=== PATIENT | female | born 1980 | race Caucasian/White ===

== ENCOUNTER 2021-01-08 15:09 | Emergency (ER) | payer OTHER ==
[~2021-01-08 15:09] MED LIST: BENTYL 10MG CAP10 MG PO; ZOFRAN 4 MG TAB4 MG PO
[2021-01-08 16:29] LABS: HEMOGLOBIN 14.3 gm/dl (12.3-15.3); RED BLOOD COUNT 4.43 M/UL (4.00-5.10); WHITE BLOOD COUNT 9.6 K/UL (4.5-11.0)
[2021-01-08 16:57] LABS: BUN/CREATININE RATIO 16 (0-10)
== END 2021-01-08 18:23 | disposition home or self-care (01) ==
LOC: ER1 15:09
PROVIDERS: Emergency Medicine; Physician Assistant
DX: S40.811A Abrasion of right upper arm, initial encounter (principal); S40.812A Abrasion of left upper arm, initial encounter; I10 Essential (primary) hypertension; Z90.710 Acquired absence of both cervix and uterus; F17.200 Nicotine dependence, unspecified, uncomplicated; Y09 Assault by unspecified means
CPT/HCPCS: 80053; 80307; 85025; 99284

== ENCOUNTER → 2021-12-30 | Outpatient (CLI) | payer OTHER ==
[2021-12-30 11:25] LABS: BUN/CREATININE RATIO 25 (0-10)
== END ==
LOC: LAB 10:00
PROVIDERS: Nurse Practitioner Family
DX: R51.9 Headache, unspecified (principal)
CPT/HCPCS: 36415; 80053